=== PATIENT | male | born 1960 | race Caucasian/White ===

== ENCOUNTER 2023-04-07 15:10 | Emergency (ER) | payer BC ==
[~2023-04-07] VITALS: Ht 172.7 cm; Wt 87.5 kg
[~2023-04-07 15:10] MED LIST: CYCLOBENZAPRINE10 MG PO; DAILY VITAMIN1 EAC2 PO; IBUPROFEN200 MG PO; NORCO 5-325 TA1 EACH PO
[2023-04-07] MEDS ORDERED: CEPHALEXIN500 M1 PO (15:48)
[2023-04-07 16:12] VITALS: BP 135/87
== END 2023-04-07 16:12 | disposition home or self-care (01) ==
LOC: ED 15:10
DX: S61.211A Laceration without foreign body of left index finger without damage to nail, initial encounter (principal); W27.8XXA Contact with other nonpowered hand tool, initial encounter; Z23 Encounter for immunization; Z79.899 Other long term (current) drug therapy
CPT/HCPCS: 90715